=== PATIENT | male | born 1975 | race African-American/Black ===

== ENCOUNTER 2021-08-30 13:29 | Outpatient (CLI) | payer OTHER ==
--- NOTE | 2021-08-30 14:12 | XRay Report ---
CHEST 2 VIEWS INDICATION / CLINICAL INFORMATION: TB CLEARANCE. COMPARISON: None available. FINDINGS: SUPPORT DEVICES: None. HEART / MEDIASTINUM: The heart size and pulmonary vasculature are normal. LUNGS / PLEURA: No significant pulmonary or pleural abnormality. No pneumothorax. ADDITIONAL FINDINGS: No significant additional findings. IMPRESSION: No acute findings. No radiographic evidence of active tuberculosis. Signer Name: Adrian Bran MD Signed: 08/30/2021 2:07 PM Workstation Name: [id number]
== END 2021-08-30 13:30 | disposition home or self-care (01) ==
LOC: XRAY 13:29
PROVIDERS: ATTEND Psychiatry & Neurology Psychiatry
DX: E78.5 Hyperlipidemia, unspecified (principal); R73.03 Prediabetes; Z22.7 Latent tuberculosis
CPT/HCPCS: 71046